=== PATIENT | male | born 1940 | race Caucasian/White ===

== ENCOUNTER → 2024-10-10 10:48 | Outpatient (REF) | payer MEDICARE, SELFPAY ==
[2024-10-10 12:12] LABS: % Basophils 0.6 % (0-2); % Immature Granulocytes 0.3 % (0-0.5); % Lymphocytes 22.2 % (20.5-51.1); % Monocytes 8.2 % (1.7-9.3); % Neutrophils 67.7 % (42.2-75.2); Absolute Basophils 0.1 10^3/uL (0-0.2); Absolute Eosinophils 0.1 10^3/uL (0-0.7); Absolute Monocytes 0.7 10^3/uL (0.1-0.6); Hematocrit 37.6 % (39.0-52.0); Hemoglobin 13.2 g/dL (13.0-18.0); Mean Corp Hgb Conc. 35.1 g/dL (33.0-37.0); Mean Corpuscular Hgb 30.7 pg (27.0-31.0); Mean Corpuscular Volume 87.4 fL (80.0-94.0); Mean Platelet Volume 9.7 fL (7.4-10.4); Nucleated Red Blood Cells % 0 % (-); Platelet Count 360 10^3/uL (130-400); Red Cell Dist. Width 12.9 % (11.5-14.5); White Blood Cell Count 8.8 10^3/uL (4.8-10.8)
[2024-10-10 12:49] LABS: ALT (SGPT) 15 U/L (0-50); AST (SGOT) 19 U/L (17-59); Albumin 4.6 g/dl (3.5-5.0); Alkaline Phosphatase 70 U/L (38-126); Blood Urea Nitrogen 19 mg/dl (9-20); Calcium 9.6 mg/dl (8.4-10.2); Carbon Dioxide 23 mmol/L (22-30); Chloride 101 mmol/L (98-107); Glucose 228 mg/dl (70-99); HDL Cholesterol 98 mg/dl; LDL Cholesterol, Calculated 80 mg/dl; Potassium 4.5 mmol/L (3.5-5.1); Sodium 136 mmol/L (135-145); Total Cholesterol 195 mg/dl (50-199); Total Protein 8.3 g/dl (6.3-8.2); Triglyceride 86 mg/dl (10-149); Very Low Density Lipoprotein 17 mg/dl (0-30); eGFR > 60.00
[2024-10-10 14:33] LABS: Glycohemoglobin (HgbA1c) 8.8 % (4.0-5.6)
[2024-10-10 15:33] LABS: Microalbumin, Random Urine 14.4 mg/dl (0.6-1.7); Microalbumin/creatinine Ratio 83.7 mg/g
== END ==
LOC: REG 10:48
PROVIDERS: ATTENDING PHYSICIAN Family Medicine
DX: E78.2 Mixed hyperlipidemia (principal); E11.9 Type 2 diabetes mellitus without complications; I10 Essential (primary) hypertension
CPT/HCPCS: 36415; 80053; 80061; 82043; 82570; 83036; 85025